=== PATIENT | female | born 1950 | race Caucasian/White ===

== ENCOUNTER 2018-10-02 16:59 | Emergency (ER) | payer MEDICARE, MEDICAID ==
[2018-10-02 17:03] VITALS: RESP 16; O2SAT 100
[2018-10-02 17:05] VITALS: TEMP 98.3
[2018-10-02] MEDS ORDERED: Sodium Chloride 0.9% 1,000 ML IV STA (18:50)
[2018-10-02 19:20] LABS: BASO # 0.1 K/uL (0.0-0.2); BASO % 0.8 % (0.0-2.0); EOS # 0.1 K/uL (0.0-0.7); EOS % 1.3 % (0.0-4.0); HEMOGLOBIN 14.2 g/dL (12.0-16.0); LYMPH # 1.3 K/uL (1.0-4.3); LYMPH % 17.5 % (20.0-40.0); MEAN CELL VOLUME 88.7 fl (81.0-99.0); MEAN CORPUSCULAR HEMOGLOBIN 29.9 pg (27.0-31.0); MEAN CORPUSCULAR HGB CONC 33.7 g/dL (33.0-37.0); MEAN PLATELET VOLUME 9.9 fl (7.2-11.7); MONO # 0.4 K/uL (0.0-0.8); MONO % 4.7 % (0.0-10.0); NEUT # 5.7 K/uL (1.8-7.0); NEUT % 75.7 % (50.0-75.0); RBC 4.73 Mil/uL (3.80-5.20); RED CELL DISTRIBUTION WIDTH 13.4 % (11.5-14.5); WHITE BLOOD COUNT 7.5 K/uL (4.8-10.8)
[2018-10-02 19:31] LABS: CALCIUM 9.3 mg/dL (8.4-10.2)
--- NOTE | 2018-10-02 19:49 | ED PDOC ---
Upper Extremity Pain/Injury Time Seen by Provider: 10/02/18 17:47 Chief Complaint (Nursing): Upper Extremity Problem/Injury Chief Complaint (Provider): Upper Extremity Problem/Injury History Per: Patient Additional Complaint(s): Patient is a 67 year old female with a past medical history of diabetes, who presents to the emergency department with onset of tremors since noon. According to patient's son, her blood sugar was 80 and patient was continuing to have shaking until in ED, where blood sugar improved to 245. Patient's symptoms have started to improve and currently complains of no other symptoms. She admits to no change in diet, no recent illness, or change in dosage of medication. PMD: Davina Silver Past Medical History Reviewed: Historical Data, Nursing Documentation, Vital Signs Vital Signs: Last Vital Signs Temp 98.3 F 10/02/18 17:02 Pulse 91 H 10/02/18 17:02 Resp 16 10/02/18 17:02 BP 156/86 H 10/02/18 17:02 Pulse Ox 100 10/02/18 17:02 - Medical History PMH: Diabetes, HTN Denies: Chronic Kidney Disease - Surgical History Surgical History: Appendectomy, Cholecystectomy, Tonsillectomy - Family History Family History: States: Unknown Family Hx - Home Medications Home Medications: Ambulatory Orders Medication Instructions Recorded Bisoprolol Fumarate/Hctz 1 tab PO HS 07/02/15 [Bisoprolol/Hctz 2.5 mg-6.25 mg] - Allergies Allergies/Adverse Reactions: Allergies Allergy/AdvReac Type Severity Reaction Status Date / Time dipyrone Allergy ANAPHYLAXIS Verified 10/02/18 17:06 shellfish derived Allergy ANAPHYLAXIS Verified 10/02/18 17:06 Review of Systems ROS Statement: Except As Marked, All Systems Reviewed And Found Negative Neurological: Positive for: Other (tremors) Physical Exam - Reviewed Nursing Documentation Reviewed: Yes Vital Signs Reviewed: Yes - Physical Exam Appears: Positive for: Non-toxic, No Acute Distress Head Exam: Positive for: ATRAUMATIC, NORMOCEPHALIC Skin: Positive for: Normal Color, Warm, Dry Eye Exam: Positive for: Normal appearance, EOMI, PERRL ENT: Positive for: Normal ENT Inspection Neck: Positive for: Normal, Painless ROM, Supple Cardiovascular/Chest: Positive for: Regular Rate, Rhythm. Negative for: Murmur Respiratory: Positive for: Normal Breath Sounds. Negative for: Respiratory Distress Gastrointestinal/Abdominal: Positive for: Normal Exam, Soft. Negative for: Tenderness Back: Positive for: Normal Inspection. Negative for: L CVA Tenderness, R CVA Tenderness, Vertebral Tenderness Extremity: Positive for: Normal ROM. Negative for: Pedal Edema, Deformity Neurological/Psych: Positive for: Alert, Oriented - Laboratory Results Result Diagrams: 10/02/18 19:14 10/02/18 19:14 - ECG O2 Sat by Pulse Oximetry: 100 (RA) Pulse Ox Interpretation: Normal Medical Decision Making Medical Decision Making: Time: 1849 A/P: Work up for hand tremors, possibly anxiety, according to son, vs. hyperglycemia. Patient has refused to take any other medications aside from IV fluids. Will obtain basic labs and reassess patient. --BMP --CBC with differential --Sodium chloride 1,000 ml Scribe Attestation: Documented by Ryan Hernandez, acting as a scribe Elsa Redmond MD. Provider Scribe Attestation: All medical record entries made by the Scribe were at my direction and personally dictated by me. I have reviewed the chart and agree that the record a ccurately reflects my personal performance of the history, physical exam, medical decision making, and the department course for this patient. I have also personally directed, reviewed, and agree with the discharge instructions and disposition. 210 Pt with improved fingerstick with glucose of 171. Symptoms resolved. Labs otherwise unrememarkable. Pt to follow up with PMD. Return parameters d iscussed. Disposition - Clinical Impression Clinical Impression: Hyperglycemia without ketosis - Patient ED Disposition Is Patient to be Admitted: No - Disposition Disposition: Routine/Home Disposition Time: 21:00 Condition: IMPROVED Forms: [employer] ([place])
[2018-10-02 21:58] VITALS: BP 123/68; PULSE 87
== END 2018-10-02 21:08 | disposition home or self-care (01) ==
LOC: H.ER 16:59
DX: E11.65 Type 2 diabetes mellitus with hyperglycemia (principal); I10 Essential (primary) hypertension; Z79.899 Other long term (current) drug therapy
CPT/HCPCS: 80048; 82948; 85025; 96360; 99284; J7030